=== PATIENT | female | born 1955 | race Caucasian/White ===

== ENCOUNTER 2018-11-26 11:51 | Emergency (ER) | payer BC, MEDICARE ==
[2018-11-26] MEDS ORDERED: Morphine 4 MG/ML VIAL ONE (13:31)
== END 2018-11-26 14:12 | disposition home or self-care (01) ==
LOC: ERS 11:51
DX: G89.29 Other chronic pain (principal); M54.5 Low back pain; M54.6 Pain in thoracic spine; C50.919 Malignant neoplasm of unspecified site of unspecified female breast; I10 Essential (primary) hypertension
CPT/HCPCS: 96372; J2270